=== PATIENT | female | born 1935 | race Caucasian/White ===

== ENCOUNTER 2016-08-17 12:18 | Emergency (ER) | payer MEDICARE, MEDICAID ==
--- NOTE | 2016-08-25 18:56 | ER ---
ADMIT: 08/17/2016 RM/LOC: ER [facility] MR#: [id number] [id number] [address] [facility] [facility] [address] [facility] Emergency Room Report SEX: F AGE: 80 : 1935 DATE: 08/17/2016 ADDENDUM: CHIEF COMPLAINT: Abdominal pain. HISTORY OF PRESENT ILLNESS: This is an 80-year-old female, who developed abdominal pain starting about a couple of months ago. It sounds like she has had a few workups for this including a CT of her abdomen that showed diverticulitis that she was treated for and resolved. Also had a colonoscopy within the last few days. She does not know if the colonoscopy irritate her more, but she said she has just been having a lot more abdominal pain especially this morning. She said she had put on some tight pants and it really exacerbated her abdominal pain. COURSE IN ER: A CBC, CMP, urine, and CT of her abdomen was done. CT of the abdomen was negative for any acute findings. CBC was normal. CMP is normal except for GFR of 60. UA was normal. I did discharge the patient home. She said she has been taking a lot more fiber likely taking three scoops of a supplement. I told her at this time just to hold that to see if her abdominal pain improves. IMPRESSION: Right and left lower quadrant abdominal pain. NEETU Youssef / Hernán Garsia MD / stepan JOB #: [id number] CC: Hernán Garsia MD, Attending Physician Jackson Francis, Family Physician
== END 2016-08-17 16:15 | disposition home or self-care (01) ==
LOC: ER 12:18
DX: R10.31 Right lower quadrant pain (principal); R10.32 Left lower quadrant pain; Z88.0 Allergy status to penicillin; Z90.49 Acquired absence of other specified parts of digestive tract; Z90.710 Acquired absence of both cervix and uterus; Z98.890 Other specified postprocedural states